=== PATIENT | female | born 1955 | race Hispanic/Latino ===

== ENCOUNTER → 2019-02-10 | Outpatient (CLI) | payer MEDICARE | END | disposition home or self-care (01) | LOC: SHCH 14:17 | PROVIDERS: ATTEND Internal Medicine Cardiovascular Disease | DX: M76.61 Achilles tendinitis, right leg (principal); M76.62 Achilles tendinitis, left leg; M77.32 Calcaneal spur, left foot; I65.23 Occlusion and stenosis of bilateral carotid arteries; M79.641 Pain in right hand | CPT/HCPCS: 73120; 73600; 93880 ==

== ENCOUNTER → 2020-06-17 | Outpatient (CLI) | payer MEDICARE, OTHER | END | disposition home or self-care (01) | LOC: OIH 13:00 | PROVIDERS: ATTEND Internal Medicine | DX: R06.00 Dyspnea, unspecified (principal); I25.10 Atherosclerotic heart disease of native coronary artery without angina pectoris; M47.814 Spondylosis without myelopathy or radiculopathy, thoracic region; I70.0 Atherosclerosis of aorta | CPT/HCPCS: 71046 ==

== ENCOUNTER → 2020-10-21 | Outpatient (CLI) | payer MEDICARE, OTHER | END | disposition home or self-care (01) | LOC: RAH 09:55 | PROVIDERS: ATTEND Internal Medicine | DX: K76.0 Fatty (change of) liver, not elsewhere classified (principal) | CPT/HCPCS: 76700 ==

== ENCOUNTER → 2021-05-02 | Outpatient (CLI) | payer MEDICARE, OTHER | END | disposition home or self-care (01) | LOC: OIH 10:54 | PROVIDERS: ATTEND Internal Medicine | DX: M19.011 Primary osteoarthritis, right shoulder (principal) | CPT/HCPCS: 73030 ==